=== PATIENT | female | born 1950 | race Caucasian/White ===

== ENCOUNTER → 2016-07-17 | Outpatient (CLI) | payer MEDICARE, MEDICAID ==
[~2016-07-17] MED LIST: ACID1TAB7 PO; ALPR0.25; ALPR0.254 PO; ARIP10TA13 PO; HYDR-3138 PO; HYDR-3241 PO; LEVO25TA2 PO; OMNIPAQUE 350 MG/ML, 100ML BOTTLE ONE; ONDA8TAB16 SL; VENL75CA PO
== END | disposition home or self-care (01) ==
LOC: CFH 11:05
PROVIDERS: ATTEND Internal Medicine Hematology & Oncology
DX: C21.1 Malignant neoplasm of anal canal (principal); C20 Malignant neoplasm of rectum; N28.1 Cyst of kidney, acquired; K57.30 Diverticulosis of large intestine without perforation or abscess without bleeding; N85.9 Noninflammatory disorder of uterus, unspecified; K76.0 Fatty (change of) liver, not elsewhere classified
CPT/HCPCS: 71260; 74177; Q9967

== ENCOUNTER → 2016-12-23 | Outpatient (CLI) | payer MEDICARE, OTHER ==
[~2016-12-23] MED LIST changes: -ARIP10TA13 PO; +ARIP10TA33 PO; -HYDR-3138 PO; +HYDR-3237 PO
== END | disposition home or self-care (01) ==
LOC: CFH 11:33
PROVIDERS: ATTEND Internal Medicine Hematology & Oncology
DX: C21.1 Malignant neoplasm of anal canal (principal); N28.1 Cyst of kidney, acquired; K76.0 Fatty (change of) liver, not elsewhere classified; K76.89 Other specified diseases of liver; K57.30 Diverticulosis of large intestine without perforation or abscess without bleeding; D25.9 Leiomyoma of uterus, unspecified
CPT/HCPCS: 71260; 74177; Q9967

== ENCOUNTER 2017-08-11 05:23 | Day surgery (SDC) | payer OTHER, MEDICAID ==
[~2017-08-11] VITALS: Ht 162.6 cm; Wt 105.6 kg
[~2017-08-11 05:23] MED LIST changes: -OMNIPAQUE 350 MG/ML, 100ML BOTTLE ONE
[2017-08-11] MEDS ORDERED: LACTATED RINGERS 1,000 ML IV SCH (05:52)
[2017-08-11 06:19] VITALS: BP 134/74
[2017-08-11] MEDS ORDERED: NONE PER PT (06:26)
[2017-08-11] MEDS ORDERED: MIDAZOLAM 1 MG/ML, 2ML ONE (07:06)
[2017-08-11] MEDS ORDERED: PROPOFOL 50 ML ONE ×2 (07:06→08:01)
[2017-08-11] MEDS ORDERED: ALBUTEROL SULFATE 2.5 MG/3 ML NPPB PRN (09:00)
[2017-08-11] MEDS ORDERED: ONDANSETRON ODT 8 MG PO PRN (09:00)
[2017-08-11] MEDS ORDERED: LABETALOL 5MG/ML, 20ML IV PRN (09:00)
[2017-08-11] MEDS ORDERED: HYDROcodone/APAP 7.5-325MG/15ML UDC PO PRN (09:00)
[2017-08-11] MEDS ORDERED: OXYcodone 5 MG/5 ML ORAL.SOL UDC PO PRN (09:00)
[2017-08-11] MEDS ORDERED: EPHEDRINE 50 MG/ML, 1ML IVPush PRN (09:00)
[2017-08-11] MEDS ORDERED: ACETAMINOPHEN 325 MG TABLET PO PRN (09:00)
[2017-08-11] MEDS ORDERED: KETOROLAC 30 MG/1 ML IV PRN (09:00)
[2017-08-11] MEDS ORDERED: hydrALAzine 20 MG/ML, 1ML IV PRN (09:00)
== END 2017-08-11 09:20 ==
LOC: OUT 05:23
PROVIDERS: ATTEND Internal Medicine Geriatric Medicine
DX: Z08 Encounter for follow-up examination after completed treatment for malignant neoplasm (principal); C18.2 Malignant neoplasm of ascending colon; D12.2 Benign neoplasm of ascending colon; K62.89 Other specified diseases of anus and rectum
CPT/HCPCS: 45380; 45391; 88305; 93005; J2250; J2704; J7120

== ENCOUNTER → 2017-09-03 | Outpatient (CLI) | payer OTHER, MEDICAID ==
[~2017-09-03] MED LIST changes: +NONE PER PT; +OMNIPAQUE 350 MG/ML, 100ML BOTTLE ONE
== END | disposition home or self-care (01) ==
LOC: RAD 09:19 → EDSTATUS 10:30
PROVIDERS: ATTEND Internal Medicine Geriatric Medicine
DX: C18.9 Malignant neoplasm of colon, unspecified (principal)
CPT/HCPCS: 74177; Q9967

== ENCOUNTER → 2017-10-02 | Outpatient (CLI) | payer OTHER, MEDICAID ==
[~2017-10-02] MED LIST changes: +ESCI5TAB PO; -OMNIPAQUE 350 MG/ML, 100ML BOTTLE ONE; +OMNIPAQUE 350 MG/ML, 75ML BOTTLE ONE; +OXYC-302 PO
== END ==
LOC: CFH 08:23
PROVIDERS: ATTEND Surgery
DX: C18.2 Malignant neoplasm of ascending colon (principal); R06.2 Wheezing
CPT/HCPCS: 71260; 82565; Q9967

== ENCOUNTER → 2017-10-02 | Outpatient (CLI) | payer OTHER, MEDICAID ==
[~2017-10-02] MED LIST changes: +CALC500T PO; +ENOX40SY4 SQ; -OMNIPAQUE 350 MG/ML, 75ML BOTTLE ONE
== END ==
LOC: STAR 12:25
PROVIDERS: ATTEND Surgery
DX: Z02.9 Encounter for administrative examinations, unspecified (principal)

== ENCOUNTER 2017-10-09 07:16 | Inpatient (IN) | payer OTHER, MEDICAID ==
[~2017-10-09] VITALS: Ht 162.6 cm; Wt 103.0 kg
[~2017-10-09 07:16] MED LIST changes: +BUPIVACAINE/PF 0.5% ONE; -CALC500T PO; -ENOX40SY4 SQ
[2017-10-09] MEDS ORDERED: LACTATED RINGERS 1,000 ML IV SCH (07:34)
[2017-10-09] MEDS ORDERED: ACETAMINOPHEN 500 MG TABLET PO ONE (08:30)
[2017-10-09] MEDS ORDERED: SCOPOLAMINE PATCH, 1.5MG PATCH.TD72 TD ONE (08:30)
[2017-10-09] MEDS ORDERED: GABAPENTIN 300 MG CAPSULE PO ONE (08:30)
[2017-10-09] MEDS ORDERED: MIDAZOLAM 1 MG/ML, 2ML ONE (08:47)
[2017-10-09] MEDS ORDERED: FENTANYL PF 250 MCG/5ML ONE (08:47)
[2017-10-09] MEDS ORDERED: ROCURONIUM 10MG/ML,5ML ONE (08:48)
[2017-10-09] MEDS ORDERED: PROPOFOL 10 MG/ML, 20ML ONE (08:49)
[2017-10-09] MEDS ORDERED: LIDOCAINE-MPF 2% ,5ML ONE (08:49)
[2017-10-09] MEDS ORDERED: CEFOTETAN PMX 2GM/50ML 50 ML ONE (08:49)
[2017-10-09] MEDS ORDERED: DEXAMETHASONE 4 MG/ML, 1ML ONE ×2 (08:50)
[2017-10-09] MEDS ORDERED: BUPIVACAINE/PF 0.25% ONE ×2 (08:51)
[2017-10-09] MEDS ORDERED: EPINEPHRINE 1 MG/ML, 1ML ONE (08:52)
[2017-10-09] MEDS ORDERED: ONDANSETRON 2MG/ML, 2ML ONE ×2 (10:35)
[2017-10-09] MEDS ORDERED: GLYCOPYRROLATE 0.4 MG/2 ML, 2ML ONE (10:40)
[2017-10-09] MEDS ORDERED: NEOSTIGMINE 1 MG/ML, 10ML ONE (10:40)
[2017-10-09] MEDS ORDERED: FENTANYL PF 100 MCG/2ML ONE ×2 (10:46→10:59)
[2017-10-09] MEDS ORDERED: OXYcodone 5 MG/5 ML ORAL.SOL UDC ONE (10:59)
[2017-10-09] MEDS ORDERED: LORazepam 2 MG/ML, 1ML IVPush PRN ×3 (11:00→15:00)
[2017-10-09] MEDS ORDERED: MEPERIDINE/PF 25MG/0.5ML IVPush PRN (11:00)
[2017-10-09] MEDS ORDERED: HALOPERIDOL 5 MG/ML IV PRN (11:00)
[2017-10-09] MEDS ORDERED: hydrALAzine 20 MG/ML, 1ML IV PRN (11:00)
[2017-10-09] MEDS ORDERED: PROMETHAZINE 12.5 MG SUPP PR PRN (11:00)
[2017-10-09] MEDS ORDERED: OXYcodone 5 MG/5 ML ORAL.SOL UDC PO PRN (11:00)
[2017-10-09] MEDS ORDERED: LABETALOL 5MG/ML, 20ML IV PRN (11:00)
[2017-10-09] MEDS ORDERED: HYDROmorphone 2 MG/ML, 1ML IV PRN (11:00)
[2017-10-09] MEDS: FENTANYL PF 100 MCG/2ML IV PRN ×2 (11:05→11:11)
[2017-10-09] MEDS ORDERED: PROMETHAZINE 25 MG/ML, 1ML ONE (11:12)
[2017-10-09] MEDS ORDERED: HYDROmorphone 2 MG/ML, 1ML ONE (11:21)
[2017-10-09 12:30] VITALS: BP 124/61
[2017-10-09] MEDS ORDERED: ONDANSETRON 2MG/ML, 2ML IV PRN ×2 (14:00→15:00)
[2017-10-09] MEDS ORDERED: DIPHENHYDRAMINE 25 MG CAPSULE PO PRN ×2 (14:00→15:00)
[2017-10-09] MEDS ORDERED: LORazepam 1MG TABLET PO PRN ×2 (14:00→15:00)
[2017-10-09] MEDS ORDERED: SCOPOLAMINE PATCH, 1.5MG PATCH.TD72 TD PRN ×2 (14:00→15:00)
[2017-10-09] MEDS ORDERED: DEXAMETHASONE 4 MG/ML, 1ML IVPush PRN ×2 (14:00→15:00)
[2017-10-09] MEDS ORDERED: DIPHENHYDRAMINE 50 MG/ML, 1ML IVPush PRN ×2 (14:00→15:00)
[2017-10-09] MEDS ORDERED: HALOPERIDOL 5 MG/ML IVPush PRN ×2 (14:00→15:00)
[2017-10-09] MEDS ORDERED: HYDROmorphone 1 MG/ML, 1ML IVPush PRN ×2 (14:00→15:00)
[2017-10-09] MEDS ORDERED: OXYcodone IR 5MG TABLET PO PRN (15:00)
[2017-10-09] MEDS ORDERED: CALCIUM CARBONATE 500 MG TAB.CHEW PO PRN (15:00)
[2017-10-09] MEDS ORDERED: D5%-0.45NACL+KCL 20MEQ 1,000 ML IV SCH (15:00)
[2017-10-09] MEDS ORDERED: HEPARIN 5,000 UNITS/ML, 1ML SQ SCH (15:00)
[2017-10-09] MEDS ORDERED: ACETAMINOPHEN 500 MG TABLET PO SCH (15:00)
[2017-10-09] MEDS: IBUPROFEN 800 MG TABLET PO SCH ×2 (15:36→21:40)
[2017-10-09] MEDS: OXYcodone IR 5MG TABLET PO PRN ×2 (15:36→19:52)
[2017-10-09] MEDS: ACETAMINOPHEN 500 MG TABLET PO SCH ×2 (15:36→21:41)
[2017-10-09] MEDS: D5%-0.45NACL+KCL 20MEQ 1,000 ML IV SCH (15:36)
[2017-10-09] MEDS ORDERED: IBUPROFEN 800 MG TABLET PO SCH (16:00)
[2017-10-09 21:14] VITALS: BP 128/63
[2017-10-09 23:59] VITALS: BP 125/58
[2017-10-10] MEDS: OXYcodone IR 5MG TABLET PO PRN ×7 (00:07→23:53)
[2017-10-10] MEDS: ACETAMINOPHEN 500 MG TABLET PO SCH ×4 (03:33→20:40)
[2017-10-10] MEDS: D5%-0.45NACL+KCL 20MEQ 1,000 ML IV SCH ×3 (04:13→20:41)
[2017-10-10 04:16] VITALS: BP 112/67
[2017-10-10 05:31] LABS: BASOPHILS # (AUTO) 0.01 x10^3/uL (0-0.1); BASOPHILS % (AUTO) 0 % (0-1); EOSINOPHILS % (AUTO) 0 % (1-7); LYMPHOCYTES # (AUTO) 0.87 x10^3/uL (1-3.4); LYMPHOCYTES % (AUTO) 7 % (22-44); MD NO; MEAN CORPUSCULAR HEMOGLOBIN 30.1 pg (27.0-34.8); MEAN CORPUSCULAR HGB CONC 33.5 g/dL (32.4-35.8); MEAN CORPUSCULAR VOLUME 89.8 fL (80-100); MEAN PLATELET VOLUME 8.9 fL (7.4-10.4); MONOCYTES # (AUTO) 1.32 x10^3/uL (0.2-0.8); MONOCYTES % (AUTO) 11 % (2-9); NEUTROPHILS # (AUTO) 9.69 x10^3/uL (1.8-6.8); NEUTROPHILS % (AUTO) 82 % (42-75); PLATELET COUNT 204 x10^3/uL (130-400); RED BLOOD COUNT 4.35 x10^6/uL (3.82-5.3); RED CELL DISTRIBUTION WIDTH 14.5 % (9.6-15.2)
[2017-10-10 05:44] LABS: ANION GAP 8 mmol/L (5-15); CALCIUM 8.9 mg/dL (8.5-10.1); CHLORIDE 104 mmol/L (98-107)
[2017-10-10 05:45] LABS: CREATININE 0.89 mg/dL (0.55-1.02)
[2017-10-10 07:00] VITALS: BP 142/76
[2017-10-10] MEDS ORDERED: CITALOPRAM 10 MG TABLET PO SCH (09:00)
[2017-10-10] MEDS: CITALOPRAM 10 MG TABLET PO SCH (09:19)
[2017-10-10] MEDS: IBUPROFEN 800 MG TABLET PO SCH ×3 (09:19→20:40)
[2017-10-10] MEDS: HEPARIN 5,000 UNITS/ML, 1ML SQ SCH ×2 (11:50→20:40)
[2017-10-10 14:52] VITALS: BP 127/73
[2017-10-10 19:17] VITALS: BP 127/65
[2017-10-11 01:25] VITALS: BP 133/58
[2017-10-11] MEDS: OXYcodone IR 5MG TABLET PO PRN ×6 (03:16→20:15)
[2017-10-11] MEDS: ACETAMINOPHEN 500 MG TABLET PO SCH ×4 (03:16→20:15)
[2017-10-11] MEDS: HEPARIN 5,000 UNITS/ML, 1ML SQ SCH ×3 (03:18→20:16)
[2017-10-11 05:14] LABS: BASOPHILS # (AUTO) 0.02 x10^3/uL (0-0.1); BASOPHILS % (AUTO) 0 % (0-1); EOSINOPHILS # (AUTO) 0.16 x10^3/uL (0-0.4); EOSINOPHILS % (AUTO) 2 % (1-7); LYMPHOCYTES # (AUTO) 1.41 x10^3/uL (1-3.4); LYMPHOCYTES % (AUTO) 18 % (22-44); MD NO; MEAN CORPUSCULAR HEMOGLOBIN 30.3 pg (27.0-34.8); MEAN CORPUSCULAR HGB CONC 33.7 g/dL (32.4-35.8); MEAN CORPUSCULAR VOLUME 90.1 fL (80-100); MONOCYTES # (AUTO) 0.87 x10^3/uL (0.2-0.8); MONOCYTES % (AUTO) 11 % (2-9); NEUTROPHILS # (AUTO) 5.41 x10^3/uL (1.8-6.8); NEUTROPHILS % (AUTO) 69 % (42-75); PLATELET COUNT 179 x10^3/uL (130-400); RED BLOOD COUNT 4.28 x10^6/uL (3.82-5.3); RED CELL DISTRIBUTION WIDTH 14.8 % (9.6-15.2)
[2017-10-11 05:15] LABS: ANION GAP 7 mmol/L (5-15); CALCIUM 8.6 mg/dL (8.5-10.1); CHLORIDE 109 mmol/L (98-107); CREATININE 0.72 mg/dL (0.55-1.02)
[2017-10-11 07:10] VITALS: BP 121/76
[2017-10-11] MEDS: CITALOPRAM 10 MG TABLET PO SCH (09:02)
[2017-10-11] MEDS: IBUPROFEN 800 MG TABLET PO SCH ×3 (09:02→20:15)
[2017-10-11 13:54] VITALS: BP 124/55
[2017-10-11] MEDS: D5%-0.45NACL+KCL 20MEQ 1,000 ML IV SCH (19:10)
[2017-10-11 19:37] VITALS: BP 135/67
[2017-10-11] MEDS: CALCIUM CARBONATE 500 MG TAB.CHEW PO PRN (22:49)
[2017-10-12] MEDS: OXYcodone IR 5MG TABLET PO PRN ×4 (00:18→13:57)
[2017-10-12 02:33] VITALS: BP 125/75
[2017-10-12] MEDS: HEPARIN 5,000 UNITS/ML, 1ML SQ SCH ×2 (03:17→11:45)
[2017-10-12] MEDS: ACETAMINOPHEN 500 MG TABLET PO SCH ×3 (03:17→15:00)
[2017-10-12] MEDS: CALCIUM CARBONATE 500 MG TAB.CHEW PO PRN (03:18)
[2017-10-12 05:03] LABS: BASOPHILS # (AUTO) 0.02 x10^3/uL (0-0.1); BASOPHILS % (AUTO) 0 % (0-1); EOSINOPHILS # (AUTO) 0.18 x10^3/uL (0-0.4); EOSINOPHILS % (AUTO) 2 % (1-7); LYMPHOCYTES # (AUTO) 0.97 x10^3/uL (1-3.4); LYMPHOCYTES % (AUTO) 13 % (22-44); MD NO; MEAN CORPUSCULAR HEMOGLOBIN 30.3 pg (27.0-34.8); MEAN CORPUSCULAR HGB CONC 33.7 g/dL (32.4-35.8); MEAN CORPUSCULAR VOLUME 90.1 fL (80-100); MEAN PLATELET VOLUME 8.8 fL (7.4-10.4); MONOCYTES # (AUTO) 0.74 x10^3/uL (0.2-0.8); MONOCYTES % (AUTO) 10 % (2-9); NEUTROPHILS # (AUTO) 5.83 x10^3/uL (1.8-6.8); NEUTROPHILS % (AUTO) 75 % (42-75); PLATELET COUNT 217 x10^3/uL (130-400); RED BLOOD COUNT 4.82 x10^6/uL (3.82-5.3)
[2017-10-12 05:15] LABS: ANION GAP 9 mmol/L (5-15); CALCIUM 9.2 mg/dL (8.5-10.1); CHLORIDE 103 mmol/L (98-107)
[2017-10-12 05:16] LABS: CREATININE 0.67 mg/dL (0.55-1.02)
[2017-10-12 07:15] VITALS: BP 127/68
[2017-10-12] MEDS: IBUPROFEN 800 MG TABLET PO SCH (08:43)
[2017-10-12] MEDS: CITALOPRAM 10 MG TABLET PO SCH (08:43)
[2017-10-12] MEDS: D5%-0.45NACL+KCL 20MEQ 1,000 ML IV SCH (12:20)
[2017-10-12 12:35] VITALS: BP 122/82
[2017-10-12] MEDS ORDERED: CALC500T PO (15:39)
[2017-10-12] MEDS ORDERED: ENOX40SY4 SQ (15:40)
== END 2017-10-12 16:30 | disposition home or self-care (01) | DRG 329 ==
LOC: ORIP 07:16 → 4NOR 12:15 → DCLOUNGE 10-12 16:00
PROVIDERS: ADMIT Surgery; ATTEND Surgery
PROC: 0DTH4ZZ Resection of Cecum, Percutaneous Endoscopic Approach (ICD-10-PCS; 2017-10-09)
PROC: 0DTK4ZZ Resection of Ascending Colon, Percutaneous Endoscopic Approach (ICD-10-PCS; 2017-10-09)
PROC: 0DTB4ZZ Resection of Ileum, Percutaneous Endoscopic Approach (ICD-10-PCS; principal; 2017-10-09 09:00)
DX: D01.0 Carcinoma in situ of colon (principal); J96.21 Acute and chronic respiratory failure with hypoxia; Z79.899 Other long term (current) drug therapy
CPT/HCPCS: 36415; 80048; 85025; 86850; 86900; 88309; J0171; J1100; J1170; J1644; J2250; J2405; J2704; J2710; J3010; J3490; J3480; J7120; S0074

== ENCOUNTER 2018-09-13 08:28 | Outpatient (CLI) | payer MEDICARE, MEDICAID ==
[~2018-09-13 08:28] MED LIST changes: -BUPIVACAINE/PF 0.5% ONE; +CALC500T PO; +ENOX40SY4 SQ
== END 2018-09-13 23:59 | disposition home or self-care (01) ==
LOC: ROC 08:28
PROVIDERS: ATTEND Radiology Radiation Oncology
DX: Z02.9 Encounter for administrative examinations, unspecified (principal)